=== PATIENT | female | born 1965 ===

== ENCOUNTER 2017-03-01 17:23 | Emergency (ER) | payer MEDICARE, OTHER ==
--- NOTE | 2017-03-01 18:17 | DIAGNOSTIC IMAGING REPORT ---
PROCEDURE: CT HEAD WITHOUT CONTRAST INDICATION: TRAUMA/INJURY TECHNIQUE: Noncontrast axial images with sagittal and coronal reformations. COMPARISON: Compared to a head CT on 06/12/2011. FINDINGS: Brain and ventricles are normal. No evidence of an acute process or hemorrhage. Sinuses and mastoids are normal. 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 IMPRESSION: 1. Negative head CT. No evidence of intracranial injury. 2. 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 3. Findings discussed with Yasmeen Butler at [address] scans at this facility use dose modulation, iterative reconstruction, and/or weight-based dosing when appropriate to reduce radiation dose to as low as reasonably achievable.
--- NOTE | 2017-03-01 21:03 | ED CLINICAL REPORT ---
Clinical Report - Physicians/Mid Levels [facility] [address] [place] [address] 03/01/2017 17:23 Patient: FREDERICK LORENZ Time Seen: 1735. Arrived- By private vehicle. Historian- patient and family. HISTORY OF PRESENT ILLNESS Chief Complaint: BACK PAIN. It is described as being in the interscapular area and area of the mid thoracic spine and lower thoracic spine. Onset was yesterday and it is still present. No bladder dysfunction, bowel dysfunction or sensory loss. Additional history - patient had a fall yesterday, while she was watching a horse race, full backwards onto concrete hitting her back, and was taken to the emergency department by ambulance with a backboard and c-collar, she was in the emergency department at [facility], and had extensive imaging, and was discharged home, however did not fill her prescription, and is not sure where her prescription is. She was diagnosed with a bladder infection, as well as a possible fracture of her thoracic spine. She reports she had a negative CT of the head. REVIEW OF SYSTEMS No fever, sore throat, difficulty breathing, skin rash or nausea. No diarrhea. All systems otherwise negative, except as recorded above. PAST HISTORY Problems: Lumbar Strain. Fall. Contusion. Rib Fracture. Depression. Hepatitis. LNMP - Last Normal Menstrual Period. Hypertension. Headache. Additional Surgeries: Ankle Sx. Cholecystectomy. Knee Surgery. Tubal Ligation. Medications: Gabapentin Oral. Calcium 600+D3 Oral. Docusate Calcium Oral. Lisinopril Oral. Citalopram Hydrobromide Oral. Allergies: Vicodin. SOCIAL HISTORY Former smoker. No alcohol use or drug use. ADDITIONAL NOTES The nursing notes have been reviewed. PHYSICAL EXAM Vital Signs: 03/01/2017 17:33 BP: 87/57. HR: 96. RR: 14. O2 saturation: 99%. Temp: 98.4 F. Pain level now: 10/10. Appearance: Alert. Eyes: Pupils equal, round and reactive to light. Neck: Normal inspection. Neck nontender. CVS: Normal heart rate and rhythm. Heart sounds normal. Respiratory: No respiratory distress. Breath sounds normal. Abdomen: Normal inspection. Soft. Bowel sounds normal. Obese. No abdominal tenderness or distention. Back: Mild vertebral point tenderness over the upper and mid thoracic spine. Mild soft tissue tenderness in the right and left thoracic area. No limitation in ROM. Skin: Skin warm. Normal skin color. Neuro: Oriented X 3. Altered mental status. Eyes open spontaneously. Best verbal response: disoriented. Best motor response: obeys commands. LABS, X-RAYS, AND EKG CT Head: (IMPRESSION: 1. Negative head CT. No evidence of intracranial injury. 2. 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 3. Findings discussed with Yasmeen Butler at [address] scans at this facility use dose modulation, iterative reconstruction, and/or weight-based dosing when appropriate to reduce radiation dose to as low as reasonably achievable. Electronically Final signed by:Crispin Savage MD 03/01/2017 6:12:03 PM). Laboratory Tests: CBC w Diff: (HUMBLE: 03/01/2017 19:43) ( MsgRcvd 03/01/2017 20:00) Final results Test Result Flag Units (Reference) WHITE BLOOD COUNT 12.1 H K/uL (4.5-11.5) RED BLOOD COUNT 3.99 L M/uL (4.00-5.20) HEMOGLOBIN 11.7 L gm/dL (12.0-16.0) HEMATOCRIT 34.3 L % (36.0-46.0) MEAN CELL VOLUME 86 fL (80-100) MEAN CORPUSCULAR HGB 29 pg (26-34) MEAN CORPUSCULAR HGB CONC 34 g/dL (31-37) RED CELL DISTRIBUTION WIDTH 12.8 % (11.6-14.8) PLATELET COUNT 332 K/uL (150-400) NEUTROPHIL % 67.9 % (50-75) LYMPH % 22.1 L % (25-40) MONO % 5.3 % (3-14) EOSINOPHIL % 4.2 H % (0-4) BASOPHIL % 0.5 % (0-2) Lactate, Serum: (HUMBLE: 03/01/2017 19:43) ( MsgRcvd 03/01/2017 20:28) Final results Test Result Flag Units (Reference) LACTIC ACID 1.1 mmol/L (0.4-2.0) [id number]: (HUMBLE: 03/01/2017 19:43) ( MsgRcvd 03/01/2017 20:31) Final results Test Result Flag Units (Reference) PROCALCITONIN <0.5 ng/mL (0-0.5) PCT Concentration: Interpretation : Risk/option for action PCT <=0.5 ng/mL : Systemic : Low risk forinfection(sepsis): progression to severeis not likely. : systemic infection.Local bacterial : CAUTION-PCT levelsinfection is : below 0.5 ng/mL do notpossible. : exclude an infection,because localizedinfections (withoutsystemic signs) may beassociated with suchlow levels. If PCT ismeasured very earlyafter a bacterialchallenge (usually <6hours), these valuesmay still be low. Inthis case PCT shouldbe re-assessed 6-24hours later. PCT >0.5 and : Systemic infection: Moderate risk for<= 2 ng/mL : (sepsis) is : progression to severepossible, but : systemic infection.other conditions : The patient should beare known to : closely monitoredelevate PCT. : both clinically andby re-assessing PCTwithin 6-24 hours. PCT > 2 ng/mL : Systemic infection: High risk for(sepsis) is likely: progression to severeunless other : systemic infection.causes are known. : PCT >= 10 ng/mL : Important systemic: High likelihood ofinflammatory : severe sepsis orresponse, almost : septic shock.exclusively due to:severe bacterial :sepsis or septic :shock. : CMP: (HUMBLE: 03/01/2017 19:43) ( MsgRcvd 03/01/2017 20:28) Final results Test Result Flag Units (Reference) GLUCOSE 84 mg/dL (70-110) BUN 7 mg/dL (7-18) CREATININE 1.0 mg/dL (0.6-1.3) Estimated GFR >60 mL/min Estimated GFR- >60 mL/min Note: Persistent reduction over 3 months in eGFR<60 mL/min/1.73 m2 defines CKD. Patients with eGFR values>=60 mL/min/1.73 m2 may also have CKD if evidence ofpersistent proteinuria. Additional information may be foundat www.kidney.org. SODIUM 142 mmol/L (136-145) POTASSIUM 4.3 mmol/L (3.5-5.1) CHLORIDE 106 mmol/L (98-107) CARBON DIOXIDE 27 mmol/L (21-32) CALCIUM 9.1 mg/dL (8.5-10.1) TOTAL PROTEIN 7.4 g/dL (6.4-8.2) ALBUMIN 3.4 g/dL (3.3-5.0) BILIRUBIN, TOTAL 0.5 mg/dL (0.0-1.0) ALKALINE PHOSPHATASE 129 H U/L (46-116) AST (SGOT) 19 U/L (15-37) ALT (SGPT) 22 U/L (12-78) . PROGRESS AND PROCEDURES Course of Care: Extensive chart review completed, patient with negative CT head, with lumbar spine with no acute signs of fracture or subluxation, T-spine with signs of a compression deformity of the T4, on x-ray. Signs of an oblique linear lucency coursing through the C6 and C7 vertebrae body to be artifact given continuation of the line at the soft tissue and no definite corroboration of the remaining sequence EKG normal sinus rhythm at 89, alcohol less than 10, negative troponin, blood pressure was 111/76, further blood pressure readings were 9458, 92/55 and 105/54. Patient was normal cartilage or her stay there. She was discharged with Keflex cyclobenzaprine and oxycodone. CBC unremarkable, with no signs of leukocytosis CMP unremarkable, alkaline phosphatase slightly elevated at 127, otherwise creatinine 1.05, potassium 4.2, sodium 139 TSH 0.5. Urinalysis Leukocyte esterase 3+, no ketones, no glucose, no nitrate, 20-50 WBC. Urine drug screen positive for cannabis Systolic bp 87-93 and thus started iv/ will order labs, pt with known cystitis, will order iv abx, she has not started abx, will await procalcitonin/ lactic. Labs with slight luekocytosis, otherwise neg lactic/ procalcitonin. patient's head CT was negative, she was drowsy and oriented to date, and such was obtained to ensure no new bleeding, no signs of any acute bleeding. 03/01/2017 21:20 BP: 99/66. HR: 79. RR: 15. O2 saturation: 99%. Temp: 98.1 F. Pain level now: 04/29. 03/01/2017 19:54 BP: 86/50. HR: 73. RR: 16. O2 saturation: 100%. Temp: 98.8 F. Pain level now: 06/29. 03/01/2017 18:46 BP: 93/56. HR: 79. RR: 15. O2 saturation: 100%. Pain level now: 06/29. 03/01/2017 17:33 BP: 87/57. HR: 96. RR: 14. O2 saturation: 99%. Temp: 98.4 F. Pain level now: 06/29. Patient is stable. Physical exam findings are improved. Symptoms better. Patient/family counseled. Disposition: Discharged. Condition: good. CLINICAL IMPRESSION Acute cystitis. Fall. T4 Fracture acute from 02/28/17. INSTRUCTIONS Apply ice. Prescription Medications: Cephalexin 500 mg: take 1 capsule orally every 8 hours for 10 days. No refill. Percocet 5 mg/325 mg: take 1 tablet orally every 6 hours as needed for pain. Dispense twenty-five (25). No refill. Substitution is permissible. Follow-up: Follow up with your doctor in four days. (Electronically signed by Dianne Butler P.A.-C 03/01/2017 21:34)
--- NOTE | 2017-03-01 21:03 | ED NURSING NOTES ---
Clinical Report - Nurses [facility] [address] [place] [address] 03/01/2017 17:23 Patient: FREDERICK LORENZ TRIAGE Triage time 17:33 Mar 01 2017. Alert. SEPSIS SCREEN: Sepsis Screen. Negative (no infection suspected/documented). JUSTEN COMA SCORE: Justen Coma Scale: 15- eyes open spontaneously (4); best verbal response- oriented x 4 (5); best motor response- obeys commands (6). --17:43 Reji Boyer R.N. 17:33 03/01/17. BP: 87/57. HR: 96. RR: 14. O2 saturation: 99%. Temp: 98.4 F. Pain level now: 06/29. --17:43 Reji Boyer R.N. Weight: 78 kg stated. Height/Length: 62 inches Per Patient. BMI: 31.5. --17:35 Reji Boyer R.N. Medications Citalopram Hydrobromide Oral. --17:36 Reji Boyer R.N. Lisinopril Oral. --17:36 Reji Boyer R.N. Docusate Calcium Oral. --17:37 Reji Boyer R.N. Calcium 600+D3 Oral. --17:37 Reji Boyer R.N. Gabapentin Oral. --17:37 Reji Boyer R.N. Allergies Vicodin. --17:36 Reji Boyer R.N. Medication/allergy information source: the patient. --17:43 Reji Boyer R.N. History Arrived by private vehicle. Historian: patient and family. Accompanied by family. Onset. (pt at [facility] yesterday had a fall landing on back, was seen at [facility], pt forgot her rx's at [facility], hospital called in her cyclobenzaprine and cephalexin (uti incidental finding) pt here for pain meds). 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 PAST MEDICAL HX: Immunizations: up-to-date. Last normal menstrual period- perimenopausal. SOCIAL HX: Former smoker. Occasional alcohol use. History of drug use: marijuana. No infectious disease exposure. ABUSE ASSESSMENT: No report of abuse. SELF HARM ASSESSMENT: A self harm assessment was performed. The patient answered "no" to the question "Do you have thoughts of harming or killing yourself?". FALL RISK ASSESSMENT: Fall risk assessment completed. No fall risk identified. NUTRITIONAL RISK ASSESSMENT: The nutritional risk assessment revealed no deficiencies. FUNCTIONAL ASSESSMENT: Functional assessment: no impairments noted. LEARNING NEEDS ASSESSMENT: The learning needs assessment revealed no barriers. SKIN INTEGRITY ASSESSMENT: Skin integrity risk assessment completed. No skin integrity risk identified. --17:43 Reji Boyer R.N. PROBLEMS: Lumbar Strain. Contusion. Rib Fracture. Depression. Hepatitis. LNMP - Last Normal Menstrual Period. Hypertension. Headache. --17:37 Reji Boyer R.N. ADDITIONAL SURGERIES: Ankle Sx. Cholecystectomy. Knee Surgery. Tubal Ligation. --17:37 Reji Boyer R.N. Interventions ID band on patient. --17:43 Reji Boyer R.N. PHYSICAL ASSESSMENT GENERAL / NEURO / PSYCH: The patient has poor eye contact and is sitting up. The patient is disoriented (drowsy). HEENT: Pupils equal, round and reactive to light. RESPIRATORY: Respirations not labored. --17:44 Reji Boyer R.N. NURSING PROGRESS NOTES Patient waiting for CT results. ( [facility] speaking with marti regarding records from yesterday). --18:18 Reji Boyer R.N. Patient identifiers checked. Call light placed in reach. Side rails up x 1. Bed placed in lowest position. Brakes of bed on. --18:46 Reji Boyer R.N. 18:46 03/01/17. BP: 93/56. HR: 79. RR: 15. O2 saturation: 100%. Pain level now: 06/29. --18:46 Reji Boyer R.N. 18:57 03/01/2017 Percocet (Oxycodone-Acetaminophen) PO 5/325 mg Tablets 1 tab given. Allergies verified, confirmed 5 rights and sedative warning given to the patient and patient's family. --19:02 Reji Boyer R.N. 19:48 03/01/2017 Site #1 started via IV in the right antecubital space with an 20g angiocath, with aseptic technique and good blood return; one attempt. Blood drawn: rainbow set. Labeled in the presence of the patient and sent to the lab. Saline lock flushed with 10 mL saline. --19:53 Wenceslao Gamez R.N. 19:54 03/01/2017 Started bag #1 1000 mL IV Fluids IV NS (Saline); bolus of 1000 mL wide open via site #1 via IV pump. Allergies verified and confirmed 5 rights. IV patency established. IV site checked: no pain, redness, or swelling. IV flushed thoroughly pre- and post-medication administration. Completed per protocol. --19:54 Wenceslao Gamez R.N. 19:54 03/01/2017 Started 2 gm of Ceftriaxone IVPB in bag #1 50 mL; at 100 mL/hr over 30 minute(s) via site #1 via IV pump. Allergies verified and confirmed 5 rights. IV patency established. IV site checked: no pain, redness, or swelling. IV flushed thoroughly pre- and post-medication administration. Completed per protocol. --19:54 Wenceslao Gamez R.N. 19:54 03/01/17. BP: 86/50. HR: 73. RR: 16. O2 saturation: 100% on room air. Temp: 98.8 F. Pain level now: 06/29. --19:56 Wenceslao Gamez R.N. 21:07 03/01/17. BP: 98/55. HR: 82. RR: 15. O2 saturation: 98%. --21:07 Reji Boyer R.N. 20:43 03/01/2017 Percocet PO Response: no adverse reaction pain is improving. Symptoms have improved the patient feels better. --21:08 Reji Boyer R.N. 20:57 03/01/2017 Ceftriaxone IVPB Discontinued: infused. Total amount infused: 50 mL. IV patency established. IV site checked: no pain, redness, or swelling. IV flushed thoroughly. --21:08 Reji Boyer R.N. 21:09 03/01/2017 IV Fluids IV NS Discontinued: infused upon discharge. Total amount infused: 1000 mL. IV patency established. IV site checked: no pain, redness, or swelling. IV flushed thoroughly. --21:09 Reji Boyer R.N. DISPOSITION / DISCHARGE 21:10 03/01/2017 Site #1 removed upon discharge. Catheter intact. Bandaid applied. --21:20 Reji Boyer R.N. No learning barriers present. Discharge instructions provided and reviewed with the patient and family. Reviewed medication(s) side effects, precautions, dosing and course information. Prescription(s) given to the patient. Patient and family verbalized understanding. Written instructions provided in Romanian. The patient was discharged by the physician him assistant. She was discharged home and accompanied by family. She left the Emergency Department ambulatory and via private vehicle. Family member driving. --21:21 Reji Boyer R.N. 21:20 03/01/17. BP: 99/66. HR: 79. RR: 15. O2 saturation: 99%. Temp: 98.1 F. Pain level now: 8/10. --21:21 Reji Boyer R.N. Locked/Released at 03/01/2017 23:20 by Reji Boyer R.N.
--- NOTE | 2017-03-01 21:03 | ED NURSING NOTES ---
Clinical Report - Nurses [facility] [address] [place] [address] 03/01/2017 17:23 Patient: FREDERICK LORENZ TRIAGE Triage time 17:33 Mar 01 2017. Alert. SEPSIS SCREEN: Sepsis Screen. Negative (no infection suspected/documented). JUSTEN COMA SCORE: Justen Coma Scale: 15- eyes open spontaneously (4); best verbal response- oriented x 4 (5); best motor response- obeys commands (6). --17:43 Reji Boyer R.N. 17:33 03/01/17. BP: 87/57. HR: 96. RR: 14. O2 saturation: 99%. Temp: 98.4 F. Pain level now: 06/29. --17:43 Reji Boyer R.N. Weight: 78 kg stated. Height/Length: 62 inches Per Patient. BMI: 31.5. --17:35 Reji Boyer R.N. Medications Citalopram Hydrobromide Oral. --17:36 Reji Boyer R.N. Lisinopril Oral. --17:36 Reji Boyer R.N. Docusate Calcium Oral. --17:37 Reji Boyer R.N. Calcium 600+D3 Oral. --17:37 Reji Boyer R.N. Gabapentin Oral. --17:37 Reji Boyer R.N. Allergies Vicodin. --17:36 Reji Boyer R.N. Medication/allergy information source: the patient. --17:43 Reji Boyer R.N. History Arrived by private vehicle. Historian: patient and family. Accompanied by family. Onset. (pt at [place] yesterday had a fall landing on back, was seen at [facility], pt forgot her rx's at [facility], hospital called in her cyclobenzaprine and cephalexin (uti incidental finding) pt here for pain meds). 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 PAST MEDICAL HX: Immunizations: up-to-date. Last normal menstrual period- perimenopausal. SOCIAL HX: Former smoker. Occasional alcohol use. History of drug use: marijuana. No infectious disease exposure. ABUSE ASSESSMENT: No report of abuse. SELF HARM ASSESSMENT: A self harm assessment was performed. The patient answered "no" to the question "Do you have thoughts of harming or killing yourself?". FALL RISK ASSESSMENT: Fall risk assessment completed. No fall risk identified. NUTRITIONAL RISK ASSESSMENT: The nutritional risk assessment revealed no deficiencies. FUNCTIONAL ASSESSMENT: Functional assessment: no impairments noted. LEARNING NEEDS ASSESSMENT: The learning needs assessment revealed no barriers. SKIN INTEGRITY ASSESSMENT: Skin integrity risk assessment completed. No skin integrity risk identified. --17:43 Reji Boyer R.N. PROBLEMS: Lumbar Strain. Contusion. Rib Fracture. Depression. Hepatitis. LNMP - Last Normal Menstrual Period. Hypertension. Headache. --17:37 Reji Boyer R.N. ADDITIONAL SURGERIES: Ankle Sx. Cholecystectomy. Knee Surgery. Tubal Ligation. --17:37 Reji Boyer R.N. Interventions ID band on patient. --17:43 Reji Boyer R.N. PHYSICAL ASSESSMENT GENERAL / NEURO / PSYCH: The patient has poor eye contact and is sitting up. The patient is disoriented (drowsy). HEENT: Pupils equal, round and reactive to light. RESPIRATORY: Respirations not labored. --17:44 Reji Boyer R.N. NURSING PROGRESS NOTES Patient waiting for CT results. ( [facility] speaking with marti regarding records from yesterday). --18:18 Reji Boyer R.N. Patient identifiers checked. Call light placed in reach. Side rails up x 1. Bed placed in lowest position. Brakes of bed on. --18:46 Reji Boyer R.N. 18:46 03/01/17. BP: 93/56. HR: 79. RR: 15. O2 saturation: 100%. Pain level now: 06/29. --18:46 Reji Boyer R.N. 18:57 03/01/2017 Percocet (Oxycodone-Acetaminophen) PO 5/325 mg Tablets 1 tab given. Allergies verified, confirmed 5 rights and sedative warning given to the patient and patient's family. --19:02 Reji Boyer R.N. 19:48 03/01/2017 Site #1 started via IV in the right antecubital space with an 20g angiocath, with aseptic technique and good blood return; one attempt. Blood drawn: rainbow set. Labeled in the presence of the patient and sent to the lab. Saline lock flushed with 10 mL saline. --19:53 Wenceslao Gamez R.N. 19:54 03/01/2017 Started bag #1 1000 mL IV Fluids IV NS (Saline); bolus of 1000 mL wide open via site #1 via IV pump. Allergies verified and confirmed 5 rights. IV patency established. IV site checked: no pain, redness, or swelling. IV flushed thoroughly pre- and post-medication administration. Completed per protocol. --19:54 Wenceslao Gamez R.N. 19:54 03/01/2017 Started 2 gm of Ceftriaxone IVPB in bag #1 50 mL; at 100 mL/hr over 30 minute(s) via site #1 via IV pump. Allergies verified and confirmed 5 rights. IV patency established. IV site checked: no pain, redness, or swelling. IV flushed thoroughly pre- and post-medication administration. Completed per protocol. --19:54 Wenceslao Gamez R.N. 19:54 03/01/17. BP: 86/50. HR: 73. RR: 16. O2 saturation: 100% on room air. Temp: 98.8 F. Pain level now: 06/29. --19:56 Wenceslao Gamez R.N. 21:07 03/01/17. BP: 98/55. HR: 82. RR: 15. O2 saturation: 98%. --21:07 Reji Boyre R.N. 20:43 03/01/2017 Percocet PO Response: no adverse reaction pain is improving. Symptoms have improved the patient feels better. --21:08 Reji Boyer R.N. 20:57 03/01/2017 Ceftriaxone IVPB Discontinued: infused. Total amount infused: 50 mL. IV patency established. IV site checked: no pain, redness, or swelling. IV flushed thoroughly. --21:08 Reji Boyer R.N. 21:09 03/01/2017 IV Fluids IV NS Discontinued: infused upon discharge. Total amount infused: 1000 mL. IV patency established. IV site checked: no pain, redness, or swelling. IV flushed thoroughly. --21:09 Reji Boyer R.N. DISPOSITION / DISCHARGE 21:10 03/01/2017 Site #1 removed upon discharge. Catheter intact. Bandaid applied. --21:20 Reji Boyer R.N. No learning barriers present. Discharge instructions provided and reviewed with the patient and family. Reviewed medication(s) side effects, precautions, dosing and course information. Prescription(s) given to the patient. Patient and family verbalized understanding. Written instructions provided in Mongolian. The patient was discharged by the physician assistant coach. She was discharged home and accompanied by family. She left the Emergency Department ambulatory and via private vehicle. Family member driving. --21:21 Reji Boyer R.N. 21:20 03/01/17. BP: 99/66. HR: 79. RR: 15. O2 saturation: 99%. Temp: 98.1 F. Pain level now: 8/10. --21:21 Reji Boyer R.N. Locked/Released at 03/01/2017 23:20 by Reji Boyer R.N.
--- NOTE | 2017-03-01 21:03 | ED ORDER SUMMARY ---
..... Patient: FREDERICK LORENZ OrderSheet [facility] VisitID: [id number] [place] [place] [address] 51y, F Registration Date/Time: 03/01/2017 ORDER SHEET Weight: 78.0 kg (stated) Allergies: Vicodin GENERAL ORDERS: CT Head wo Cont Urgent (17:53 03/01/2017 EKoroleva P.A.-C) (Ack 17:54 PWeiler ER Tech1) (18:11 PWeiler ER Tech1) CBC w Diff Urgent (19:29 03/01/2017 EKoroleva P.A.-C) (Ack 19:32 LMuller) (19:48 MCook R.N.) CMP Urgent (19:29 03/01/2017 EKoroleva P.A.-C) (Ack 19:32 LMuller) (19:48 MCook R.N.) Lactate, Serum Urgent (19:29 03/01/2017 EKoroleva P.A.-C) (Ack 19:32 LMuller) (19:48 MCook R.N.) PCT (Procalcitonin) Urgent (19:29 03/01/2017 EKoroleva P.A.-C) (Ack 19:32 LMuller) (19:48 MCook R.N.) Vitals (2055) (20:36 03/01/2017 EKoroleva P.A.-C) (21:09 KPage-Kuchan R.N.) MEDICATION ORDERS: Percocet PO 5/325 mg (HIGH ALERT MEDICATION, NOW) (18:50 03/01/2017 EKoroleva P.A.-C) (Ack 18:52 KPage-Kuchan R.N.) (19:02 KPage-Kuchan R.N.) IV FLUIDS: Ceftriaxone IV 2 gm/50mL (NOW) (19:31 03/01/2017 EKoroleva P.A.-C) (19:54 MCook R.N.) IV NS : initial bolus 1000 mL (1000 mL/hr), then 10 mL/hr for X1 (NOW); Mekhi (19:31 03/01/2017 Aura Becker) (19:54 Aisha Kruse) ORDER SHEET NOTES: [Electronically signed by Dianne Butler P.A.-C (21:34 03/01/2017)] [Electronically signed by Reji Boyer R.N. (23:20 03/01/2017)] [Electronically locked/signed by Reji Boyer R.N. (23:20 03/01/2017)]
--- NOTE | 2017-03-01 21:03 | ED ORDER SUMMARY ---
..... Patient: FREDERICK LORENZ OrderSheet [facility] VisitID: [id number] [place] [place] [address] 51y, F Registration Date/Time: 03/01/2017 ORDER SHEET Weight: 78.0 kg (stated) Allergies: Vicodin GENERAL ORDERS: CT Head wo Cont Urgent (17:53 03/01/2017 EKoroleva P.A.-C) (Ack 17:54 PWeiler ER Tech1) (18:11 PWeiler ER Tech1) CBC w Diff Urgent (19:29 03/01/2017 EKoroleva P.A.-C) (Ack 19:32 LMuller) (19:48 MCook R.N.) CMP Urgent (19:29 03/01/2017 EKoroleva P.A.-C) (Ack 19:32 LMuller) (19:48 MCook R.N.) Lactate, Serum Urgent (19:29 03/01/2017 EKoroleva P.A.-C) (Ack 19:32 LMuller) (19:48 MCook R.N.) PCT (Procalcitonin) Urgent (19:29 03/01/2017 EKoroleva P.A.-C) (Ack 19:32 LMuller) (19:48 MCook R.N.) Vitals (2055) (20:36 03/01/2017 EKoroleva P.A.-C) (21:09 KPage-Kuchan R.N.) MEDICATION ORDERS: Percocet PO 5/325 mg (HIGH ALERT MEDICATION, NOW) (18:50 03/01/2017 EKoroleva P.A.-C) (Ack 18:52 KPage-Kuchan R.N.) (19:02 KPage-Kuchan R.N.) IV FLUIDS: Ceftriaxone IV 2 gm/50mL (NOW) (19:31 03/01/2017 EKoroleva P.A.-C) (19:54 MCook R.N.) IV NS : initial bolus 1000 mL (1000 mL/hr), then 10 mL/hr for X1 (NOW); Mekhi (19:31 03/01/2017 Aura Becker) (19:54 Aisha Kruse) ORDER SHEET NOTES: [Electronically signed by Dianne Butler P.A.-C (21:34 03/01/2017)] [Electronically signed by Reji Boyer R.N. (23:20 03/01/2017)] [Electronically locked/signed by Reji Boyer R.N. (23:20 03/01/2017)]
--- NOTE | 2017-03-01 23:21 | ED MAR SUMMARY ---
..... Medication Administration Record [facility] [address] [place] [address] Patient: FREDERICK LORENZ Visit ID: [id number] 51y, F Weight: 78.0 kg Height/Length: 62 in BMI: 31.5 ALLERGIES: Vicodin Given 18:57 03/01/2017 Reji Boyer R.N. Medication Administered: PERCOCET [PO] (OXYCODONE-ACETAMINOPHEN), Dose: 1 tab 5/325 mg Tablets PO. Medication Ordered: Percocet PO 5/325 mg (HIGH ALERT MEDICATION, NOW). Start 19:54 03/01/2017 Wenceslao Gamez R.N., Stop 20:57 03/01/2017 Reji Boyer R.N. Medication Administered: CEFTRIAXONE [IVPB], Dose: 2 gm IVPB over 30 minute(s), Rate: 100 mL/hr, Dispensed: 50 mL bag, Site: #1 right AC. Medication Ordered: Ceftriaxone IV 2 gm/50mL (NOW). Start 19:54 03/01/2017 Wenceslao Gamez R.N., Stop 21:09 03/01/2017 Reji Boyer R.N. Medication Administered: IV NS (SALINE), Dose: IV Fluids, Bolus: 1000 mL wide open, Dispensed: 1000 mL bag, Site: #1 right AC. Medication Ordered: IV NS : initial bolus 1000 mL (1000 mL/hr), then 10 mL/hr for X1 (NOW); Mekhi.
--- NOTE | 2017-03-01 23:21 | ED DISCHARGE INSTRUCTIONS ---
Patient: FREDERICK LORENZ General Instructions [facility] VisitID: [id number] [place] [place] [address] 51y, F Registration Date/Time: 03/01/2017 Acute cystitis. Fall. T4 Fracture acute from 02/28/17. INSTRUCTIONS Apply ice. Prescription Medications: Cephalexin 500 mg: take 1 capsule orally every 8 hours for 10 days. No refill. Percocet 5 mg/325 mg: take 1 tablet orally every 6 hours as needed for pain. Dispense twenty-five (25). No refill. Substitution is permissible. Follow-up: Follow up with your doctor in four days. ADDITIONAL INFORMATION Mechanical Fall You have had a fall today. It appears that the cause is mechanical. That means that you slipped, tripped or lost your balance. If your fall had been due to fainting or a seizure, further tests would be required. Home Care: Rest today and resume your normal activities when you are feeling back to normal. If you were injured during the fall, follow the advice from your doctor regarding care of your injury. You may use acetaminophen (Tylenol) or ibuprofen (Motrin, Advil) to control pain, unless another pain medicine was prescribed. [NOTE: If you have chronic liver or kidney disease or ever had a stomach ulcer or GI bleeding, talk with your doctor before using these medicines.] Fall Prevention: Was there anything that caused your fall that can be fixed, removed, or replaced? Make your home safe by keeping walkways clear of objects you may trip over. Use non-slip pads under rugs. Do not walk in poorly lit areas. Do not stand on chairs or wobbly ladders. Use caution when reaching overhead or looking upward. This position can cause a loss of balance. Be sure your shoes fit properly, have non-slip bottoms and are in good condition. Be cautious when going up and down curbs, and walking on uneven sidewalks. If your balance is poor, consider using a cane or walker. Stay as active as you can. Balance, flexibility, strength, and endurance all come from exercise. They all play a role in preventing falls. Follow Up with your doctor or as advised by our staff. Get Prompt Medical Attention if any of the following occur: Repeated mechanical falls, or unexplained falls Dizziness, fainting or seizure Severe headache Chest pain or shortness of breath Palpitations (very rapid or very slow or irregular heartbeat) Blood in vomit, stools (black or red color) Weakness of an arm or leg or one side of the face Difficulty with speech or vision Bladder Infection,Female (Adult) A bladder infection ("cystitis" or "UTI") usually causes a constant urge to urinate and a burning when passing urine. Urine may be cloudy, smelly or dark. There may be pain in the lower abdomen. A bladder infection occurs when bacteria from the vaginal area enter the bladder opening (urethra). This can occur from sexual intercourse, wearing tight clothing, dehydration and other factors. Home Care: Drink lots of fluids (at least 6-8 glasses a day, unless you must restrict fluids for other medical reasons). This will force the medicine into your urinary system and flush the bacteria out of your body. Avoid sexual intercourse until your symptoms are gone. Avoid caffeine, alcohol and spicy foods. These can irritate the bladder. A bladder infection is treated with antibiotics. You may also be given Pyridium (generic = phenazopyridine) to reduce the burning sensation. This medicine will cause your urine to become a bright orange color. The orange urine may stain clothing. You may wear a pad or panty-liner to protect clothing. Preventing Future Infections: Always wipe from front to back after a bowel movement. Keep the genital area clean and dry. Drink plenty of fluids each day to avoid dehydration. Both sexual partners should wash before intercourse. Urinate right after intercourse to flush out the bladder. Wear cotton underwear and cotton-lined panty hose; avoid tight-fitting pants. If you are on control pills and are having frequent bladder infections, discuss with your doctor. Follow Up: Return to this facility or see your doctor if ALL symptoms are not gone after three days of treatment. Get Prompt Medical Attention if any of the following occur: Fever of 100.4F (38C) or higher, or as directed by your healthcare provider No improvement by the third day of treatment Increasing back or abdominal pain Repeated vomiting; unable to keep medicine down Weakness, dizziness or fainting Vaginal discharge Pain, redness or swelling in the labia (outer vaginal area) Cephalexin Monohydrate Oral tablet What is this medicine? CEPHALEXIN (sef a LIUDMILA in) is a cephalosporin antibiotic. It is used to treat certain kinds of bacterial infections It will not work for colds, flu, or other viral infections. How should I use this medicine? Take this medicine by mouth with a full glass of water. Follow the directions on the prescription label. This medicine can be taken with or without food. Take your medicine at regular intervals. Do not take your medicine more often than directed. Take all of your medicine as directed even if you think you are better. Do not skip doses or stop your medicine early. Talk to your ordnance truck installation supervisor regarding the use of this medicine in children. While this drug may be prescribed for selected conditions, precautions do apply. What side effects may I notice from receiving this medicine? Side effects that you should report to your doctor or health critical care specialist as soon as possible: allergic reactions like skin rash, itching or hives, swelling of the face, lips, or tongue breathing problems pain or trouble passing urine redness, blistering, peeling or loosening of the skin, including inside the mouth severe or watery diarrhea unusually weak or tired yellowing of the eyes, skin Side effects that usually do not require medical attention (report to your doctor or health critical care specialist if they continue or are bothersome): gas or heartburn genital or anal irritation headache joint or muscle pain nausea, vomiting What may interact with this medicine? probenecid some other antibiotics What if I miss a dose? If you miss a dose, take it as soon as you can. If it is almost time for your next dose, take only that dose. Do not take double or extra doses. There should be at least 4 to 6 hours between doses. Where should I keep my medicine? Keep out of the reach of children. Store at room temperature between 59 and 86 degrees F (15 and 30 degrees C). Throw away any unused medicine after the expiration date. What should I tell my health care provider before I take this medicine? They need to know if you have any of these conditions: kidney disease stomach or intestine problems, especially colitis an unusual or allergic reaction to cephalexin, other cephalosporins, penicillins, other antibiotics, medicines, foods, dyes or preservatives or trying to get breast-feeding What should I watch for while using this medicine? Tell your doctor or health critical care specialist if your symptoms do not begin to improve in a few days. Do not treat diarrhea with over the counter products. Contact your doctor if you have diarrhea that lasts more than 2 days or if it is severe and watery. If you have diabetes, you may get a false-positive result for sugar in your urine. Check with your doctor or health critical care specialist. Oxycodone Hydrochloride, Acetaminophen Oral tablet What is this medicine? ACETAMINOPHEN; OXYCODONE (a set a BROOKE ethan fen; ox i KOE done) is a pain reliever. It is used to treat mild to moderate pain. How should I use this medicine? Take this medicine by mouth with a full glass of water. Follow the directions on the prescription label. Take your medicine at regular intervals. Do not take your medicine more often than directed. Talk to your ordnance truck installation supervisor regarding the use of this medicine in children. Special care may be needed. Patients over 65 years old may have a stronger reaction and need a smaller dose. What side effects may I notice from receiving this medicine? Side effects that you should report to your doctor or health critical care specialist as soon as possible: allergic reactions like skin rash, itching or hives, swelling of the face, lips, or tongue breathing difficulties, wheezing confusion light headedness or fainting spells severe stomach pain yellowing of the skin or the whites of the eyes Side effects that usually do not require medical attention (report to your doctor or health critical care specialist if they continue or are bothersome): dizziness drowsiness nausea vomiting What may interact with this medicine? alcohol antihistamines barbiturates like amobarbital, butalbital, butabarbital, methohexital, pentobarbital, phenobarbital, thiopental, and secobarbital benztropine drugs for bladder problems like solifenacin, trospium, oxybutynin, tolterodine, hyoscyamine, and methscopolamine drugs for breathing problems like ipratropium and tiotropium drugs for certain stomach or intestine problems like propantheline, homatropine methylbromide, glycopyrrolate, atropine, belladonna, and dicyclomine general anesthetics like etomidate, ketamine, nitrous oxide, propofol, desflurane, enflurane, halothane, isoflurane, and sevoflurane medicines for depression, anxiety, or psychotic disturbances medicines for sleep muscle relaxants naltrexone narcotic medicines (opiates) for pain phenothiazines like perphenazine, thioridazine, chlorpromazine, mesoridazine, fluphenazine, prochlorperazine, promazine, and trifluoperazine scopolamine tramadol trihexyphenidyl What if I miss a dose? If you miss a dose, take it as soon as you can. If it is almost time for your next dose, take only that dose. Do not take double or extra doses. Where should I keep my medicine? Keep out of the reach of children. This medicine can be abused. Keep your medicine in a safe place to protect it from theft. Do not share this medicine with anyone. Selling or giving away this medicine is dangerous and against the law. Store at room temperature between 20 and 25 degrees C (68 and 77 degrees F). Keep container tightly closed. Protect from light. This medicine may cause accidental overdose and if it is taken by other adults, children, or pets. Flush any unused medicine down the toilet to reduce the chance of harm. Do not use the medicine after the expiration date. What should I tell my health care provider before I take this medicine? They need to know if you have any of these conditions: brain tumor Crohn's disease, inflammatory bowel disease, or ulcerative colitis drink more than 3 alcohol containing drinks per day drug abuse or addiction head injury heart or circulation problems kidney disease or problems going to the bathroom liver disease lung disease, asthma, or breathing problems an unusual or allergic reaction to acetaminophen, oxycodone, other opioid analgesics, other medicines, foods, dyes, or preservatives or trying to get breast-feeding What should I watch for while using this medicine? Tell your doctor or health critical care specialist if your pain does not go away, if it gets worse, or if you have new or a different type of pain. You may develop tolerance to the medicine. Tolerance means that you will need a higher dose of the medication for pain relief. Tolerance is normal and is expected if you take this medicine for a long time. Do not suddenly stop taking your medicine because you may develop a severe reaction. Your body becomes used to the medicine. This does NOT mean you are addicted. Addiction is a behavior related to getting and using a drug for a non-medical reason. If you have pain, you have a medical reason to take pain medicine. Your doctor will tell you how much medicine to take. If your doctor wants you to stop the medicine, the dose will be slowly lowered over time to avoid any side effects. You may get drowsy or dizzy. Do not drive, use machinery, or do anything that needs mental alertness until you know how this medicine affects you. Do not stand or sit up quickly, especially if you are an older patient. This reduces the risk of dizzy or fainting spells. Alcohol may interfere with the effect of this medicine. Avoid alcoholic drinks. There are different types of narcotic medicines (opiates) for pain. If you take more than one type at the same time, you may have more side effects. Give your health care provider a list of all medicines you use. Your doctor will tell you how much medicine to take. Do not take more medicine than directed. Call emergency for help if you have problems breathing. The medicine will cause constipation. Try to have a bowel movement at least every 2 to 3 days. If you do not have a bowel movement for 3 days, call your doctor or health critical care specialist. Do not take Tylenol (acetaminophen) or medicines that have acetaminophen with this medicine. Too much acetaminophen can be very dangerous. Many nonprescription medicines contain acetaminophen. Always read the labels carefully to avoid taking more acetaminophen. You have been given the following additional information: Fall, Mechanical Bladder Infection, Female (Adult) Cephalexin Monohydrate Oral tablet Oxycodone Hydrochloride, Acetaminophen Oral tablet (Electronically signed by Dianne Butler P.A.-C 03/01/2017 21:34)
--- NOTE | 2017-03-01 23:21 | ED MAR SUMMARY ---
..... Medication Administration Record [facility] [address] [place] [address] Patient: FREDERICK LORENZ Visit ID: [id number] 51y, F Weight: 78.0 kg Height/Length: 62 in BMI: 31.5 ALLERGIES: Vicodin Given 18:57 03/01/2017 Reji Boyer R.N. Medication Administered: PERCOCET [PO] (OXYCODONE-ACETAMINOPHEN), Dose: 1 tab 5/325 mg Tablets PO. Medication Ordered: Percocet PO 5/325 mg (HIGH ALERT MEDICATION, NOW). Start 19:54 03/01/2017 Wenceslao Gamez R.N., Stop 20:57 03/01/2017 Reji Boyer R.N. Medication Administered: CEFTRIAXONE [IVPB], Dose: 2 gm IVPB over 30 minute(s), Rate: 100 mL/hr, Dispensed: 50 mL bag, Site: #1 right AC. Medication Ordered: Ceftriaxone IV 2 gm/50mL (NOW). Start 19:54 03/01/2017 Wenceslao Gamez R.N., Stop 21:09 03/01/2017 Reji Boyer R.N. Medication Administered: IV NS (SALINE), Dose: IV Fluids, Bolus: 1000 mL wide open, Dispensed: 1000 mL bag, Site: #1 right AC. Medication Ordered: IV NS : initial bolus 1000 mL (1000 mL/hr), then 10 mL/hr for X1 (NOW); Mekhi.
--- NOTE | 2017-03-01 23:21 | ED MED RECONCILIATION SUMMARY ---
Patient: FREDERICK LORENZ Medication Reconciliation Report [facility] VisitID: [id number] [address] [place] [address] 51y, F Registration Date/Time: 03/01/2017 Weight: 78.0 kg Height/Length: 62 in. BMI: 31.5 ALLERGIES: Vicodin The patient's Home Medications are listed below: THE FOLLOWING MEDICATIONS NEED TO BE RECONCILED: Calcium 600+D3 Oral Citalopram Hydrobromide Oral Docusate Calcium Oral Gabapentin Oral Lisinopril Oral The source(s) of the original Home Medication information: patient The following Medications were given to the patient in the Emergency Department: Percocet [PO] PO 1 tab, administered: 03/01/2017 6:57:00 PM IV NS IV Fluids bolus 1000 mL wide open, administered: 03/01/2017 7:54:00 PM Ceftriaxone [IVPB] IVPB bolus 0, then 2 gm 100 mL/hr, administered: 03/01/2017 7:54:00 PM The following Medications were prescribed to the patient: Cephalexin 500 mg: take 1 capsule orally every 8 hours for 10 days. No refill. -- Dianne Butler, P.A.-King Percocet 5 mg/325 mg: take 1 tablet orally every 6 hours as needed for pain. Dispense twenty-five (25). No refill. Substitution is permissible. -- Dianne Butler, P.A.-C
--- NOTE | 2017-03-01 23:21 | ED MED RECONCILIATION SUMMARY ---
Patient: FREDERICK LORENZ Medication Reconciliation Report [facility] VisitID: [id number] [address] [place] [address] 51y, F Registration Date/Time: 03/01/2017 Weight: 78.0 kg Height/Length: 62 in. BMI: 31.5 ALLERGIES: Vicodin The patient's Home Medications are listed below: THE FOLLOWING MEDICATIONS NEED TO BE RECONCILED: Calcium 600+D3 Oral Citalopram Hydrobromide Oral Docusate Calcium Oral Gabapentin Oral Lisinopril Oral The source(s) of the original Home Medication information: patient The following Medications were given to the patient in the Emergency Department: Percocet [PO] PO 1 tab, administered: 03/01/2017 6:57:00 PM IV NS IV Fluids bolus 1000 mL wide open, administered: 03/01/2017 7:54:00 PM Ceftriaxone [IVPB] IVPB bolus 0, then 2 gm 100 mL/hr, administered: 03/01/2017 7:54:00 PM The following Medications were prescribed to the patient: Cephalexin 500 mg: take 1 capsule orally every 8 hours for 10 days. No refill. -- Dianne Butler, P.A.-King Percocet 5 mg/325 mg: take 1 tablet orally every 6 hours as needed for pain. Dispense twenty-five (25). No refill. Substitution is permissible. -- Dianne Butler, P.A.-C
== END 2017-03-01 21:19 | disposition home or self-care (01) ==
LOC: ED SRH 17:23
DX: S22.049S Unspecified fracture of fourth thoracic vertebra, sequela (principal); N30.90 Cystitis, unspecified without hematuria; W01.198A Fall on same level from slipping, tripping and stumbling with subsequent striking against other object, initial encounter; Y93.89 Activity, other specified; Y92.89 Other specified places as the place of occurrence of the external cause; Y99.9 Unspecified external cause status; I10 Essential (primary) hypertension; Z79.899 Other long term (current) drug therapy; Z88.5 Allergy status to narcotic agent
CPT/HCPCS: 90100; 92031; 93004; 95059